=== PATIENT | female | born 1985 | race Caucasian/White ===

== ENCOUNTER 2016-09-24 20:08 | Emergency (ER) | payer OTHER ==
[~2016-09-24 20:08] MED LIST: /INSUNPH SC; CEPA5.4L2 MT; HUMA100I SC; HUMA100I3 SC; INSUDET SC; INSULADS SC; INSUN SC; LEVO750T33 PO; PERCOCET PO; REGL10TA6 PO; RIFA30CA PO; TUMS500C PO; TYLE325T5 PO; XANA1TAB2 PO; ZOLO100T PO; ZOLO50TA PO; [UNRECOGNIZED DRUG - OTHER] PO
[2016-09-24] MEDS ORDERED: CLINDAMYCIN 150 MG CAP As Ordered ONE (21:04)
[2016-09-24] MEDS ORDERED: IBUPROFEN 800 MG TAB As Ordered ONE (21:04)
--- NOTE | 2016-09-24 21:11 | EDDOCDS ---
Physician Documentation [facility] Name: Jenifer Tinoco Age: 31 yrs Sex: Female : 1985 Arrival Date: 09/24/2016 Time: 20:08 Bed 19 Private MD: NO PRIMARY PHYSICIAN, . Disposition: 09/24/16 20:44 Discharged to Home/Self Care. Impression: Dental caries. - Condition is Stable. - Discharge Instructions: Dental Pain. - Prescriptions for Clindamycin HCl 300 mg Oral Capsule - take 1 capsule by ORAL route every 6 hours; 40 capsule. Ibuprofen 800 mg Oral Tablet - take 1 tablet by ORAL route every 12 hours As needed take with food; 20 tablet. - Medication Reconciliation, Local Pharmacy Hours form. - Follow up: Private Physician; When: Call to arrange an appointment; Reason: Continuance of care. - Problem is an ongoing problem. - Symptoms have improved. - Notes: FOLLOW UP WITH THE DENTIST PREVIOUSLY ARRANGED. Historical: - Allergies: no known allergies; - Home Meds: 1. levamir insulin 20units twice a day 2. Humalog sliding scale Sub-Q three times a day - PMHx: Diabetes - IDDM: controlled; - PSHx: ; - Social history: Smoking status: Patient uses tobacco products, light tobacco smoker. No barriers to communication noted, The patient speaks fluent Namibian. - Family history: Not pertinent. - : The pt / caregiver states he / she is not on anticoagulants. Home medication list is obtained from the patient. - Exposure Risk Screening:: None identified. 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 Vital Signs: 20:09 BP 153 / 91; Pulse 101; Resp 16; Temp 97.4; Pulse Ox 97% ; Weight 74.84 kg / 164.99 elp lbs; Height 5 ft. 7 in. (170.18 cm); Pain 6/10; 20:09 Body Mass Index 25.84 (74.84 kg, 170.18 cm) elp MDM: 20:43 Ibuprofen 800 mg PO once ordered. mm11 20:43 Clindamycin 300 mg PO once ordered. mm11 Administered Medications: 21:08 Drug: Ibuprofen 800 mg Route: PO; ms2 21:08 Drug: Clindamycin 300 mg [clindamycin 150 mg capsule (2 caps)] Route: PO; ms2 Signatures: Jeremiah Sanchez RN RN ms2 Catina Gonzales RN RN mcp Wilfredo Tom, DO mm11 MTDD
--- NOTE | 2016-09-24 21:11 | EDDOCDS ---
Nurse's Notes [facility] Name: Jenifer Tinoco Age: 31 yrs Sex: Female : 1985 Arrival Date: 09/24/2016 Time: 20:08 Bed 19 Private MD: NO PRIMARY PHYSICIAN, . Diagnosis: Dental caries Presentation: 09/24 20:11 Presenting complaint: Patient states: Infection in tooth for last 4 days, jaw hurts. [facility] Adult Sepsis Screening: The patient does not have new or worsening altered mentation. Patient's respiratory rate is less than 22. Systolic blood pressure is greater than 100. Patient has a qSOFA score of 0- Negative Sepsis Screen. Suicide/Homicide risk assessment- the patient denies having any suicidal and/or homicidal ideations and does not present with any other emotional, behavioral or mental health complaints. 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 Transition of care: patient was not received from another setting of care. 20:11 Acuity: JOSE M Level 5 [facility] 20:11 Method Of Arrival: Walkin/Carried/Asstd [facility] Triage Assessment: 20:13 General: Appears uncomfortable, Behavior is cooperative. Pain: Location: mouth Pain mcp currently is 6 out of 10 on a pain scale. HIV screening NA for this visit Offered previously. Neurological: No deficits noted. Respiratory: Airway is patent Respiratory effort is even, unlabored. Derm: Skin is pink, warm & dry. 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 levamir insulin 20units twice a day 2. Humalog sliding scale Sub-Q three times a day - PMHx: Diabetes - IDDM: controlled; - PSHx: ; - Social history: Smoking status: Patient uses tobacco products, light tobacco smoker. No barriers to communication noted, The patient speaks fluent Turkmen. - Family history: Not pertinent. - : The pt / caregiver states he / she is not on anticoagulants. Home medication list is obtained from the patient. - Exposure Risk Screening:: None identified. Assessment: 21:08 General: Appears in no apparent distress, Behavior is cooperative. Neurological: Level ms2 of Consciousness is awake, alert, obeys commands. Respiratory: No deficits noted. Airway is patent Respiratory effort is even, unlabored, Respiratory pattern is regular, symmetrical. Derm: Skin is pink, warm & dry. Musculoskeletal: Range of motion intact in all extremities. Vital Signs: 20:09 BP 153 / 91; Pulse 101; Resp 16; Temp 97.4; Pulse Ox 97% ; Weight 74.84 kg; Height 5 elp ft. 7 in. (170.18 cm); Pain 6/10; 20:09 Body Mass Index 25.84 (74.84 kg, 170.18 cm) elp Vitals: 20:09 Log In Time: September 24, 2016 at 20:07. elp ED Course: 20:08 Patient visited by Shannon Flores PCA. elp 20:08 Patient moved to Waiting elp 20:09 NO PRIMARY PHYSICIAN, . is Private Physician. elp 20:09 Patient moved to Pre RCE elp 20:12 Triage Initiated mcp 20:14 Patient visited by Catina Gonzales RN. mcp 20:23 Jeremiah Sanchez RN is Primary Nurse. jb5 20:23 Patient moved to 19 jb5 20:31 Wilfredo Tom DO is Attending Physician. mm11 20:31 Patient visited by Wilfredo oTm DO. mm11 20:38 Patient visited by Wilfredo Tom DO. mm11 21:02 Patient visited by Luis Daniel Nevarez PCA. kb5 21:07 Patient visited by Jeremiah Sanchez,JESIKA. ms2 21:09 The patient / caregiver is instructed regarding the plan of care and ED course. ms2 21:09 No IV's were initiated during this patient's visit. No procedures done that require ms2 assistance. Administered Medications: 21:08 Drug: Ibuprofen 800 mg Route: PO; ms2 21:08 Drug: Clindamycin 300 mg [clindamycin 150 mg capsule (2 caps)] Route: PO; ms2 Order Results: There are currently no results for this order. Outcome: 20:44 Discharge ordered by Provider. mm11 21:09 Discharge Assessment: patient administered narcotics - no. The following High Risk ms2 Discharge criteria are identified: None. Discharged to home ambulatory, with parent. Condition: stable. Discharge instructions given to patient, Instructed on discharge instructions, follow up and referral plans. medication usage, Demonstrated understanding of instructions, medications, Pt was receptive of discharge instructions/ teaching. Prescriptions given X 2 faxed. No special radiology studies were completed. Property sent home with patient. 21:10 Patient left the ED. ms2 Signatures: Jeremiah Sanchez RN RN Catina Hart RN RN Katiuska Goodman, LINE INSTALLATION SUPERVISOR LINE INSTALLATION SUPERVISOR jb5 Geri, Luis Daniel, LINE INSTALLATION SUPERVISOR LINE INSTALLATION SUPERVISOR kb5 Wilfredo Tom, DO DO mm11 Shannon Flores, LINE INSTALLATION SUPERVISOR LINE INSTALLATION SUPERVISOR elp MTDD
--- NOTE | 2016-09-28 09:56 | EDDOCDS ---
Nurse's Notes [facility] Name: Jenifer Tinoco Age: 31 yrs Sex: Female : 1985 Arrival Date: 09/24/2016 Time: 20:08 Bed 19 Private MD: NO PRIMARY PHYSICIAN, . Diagnosis: Dental caries Presentation: 09/24 20:11 Presenting complaint: Patient states: Infection in tooth for last 4 days, jaw hurts. [facility] Adult Sepsis Screening: The patient does not have new or worsening altered mentation. Patient's respiratory rate is less than 22. Systolic blood pressure is greater than 100. Patient has a qSOFA score of 0- Negative Sepsis Screen. Suicide/Homicide risk assessment- the patient denies having any suicidal and/or homicidal ideations and does not present with any other emotional, behavioral or mental health complaints. 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 Transition of care: patient was not received from another setting of care. 20:11 Acuity: JOSE M Level 5 [facility] 20:11 Method Of Arrival: Walkin/Carried/Asstd [facility] Triage Assessment: 20:13 General: Appears uncomfortable, Behavior is cooperative. Pain: Location: mouth Pain mcp currently is 6 out of 10 on a pain scale. HIV screening NA for this visit Offered previously. Neurological: No deficits noted. Respiratory: Airway is patent Respiratory effort is even, unlabored. Derm: Skin is pink, warm & dry. 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 Historical: - Allergies: no known allergies; - Home Meds: 1. levamir insulin 20units twice a day 2. Humalog sliding scale Sub-Q three times a day - PMHx: Diabetes - IDDM: controlled; - PSHx: ; - Social history: Smoking status: Patient uses tobacco products, light tobacco smoker. No barriers to communication noted, The patient speaks fluent Albanian. - Family history: Not pertinent. - : The pt / caregiver states he / she is not on anticoagulants. Home medication list is obtained from the patient. - Exposure Risk Screening:: None identified. Assessment: 21:08 General: Appears in no apparent distress, Behavior is cooperative. Neurological: Level ms2 of Consciousness is awake, alert, obeys commands. Respiratory: No deficits noted. Airway is patent Respiratory effort is even, unlabored, Respiratory pattern is regular, symmetrical. Derm: Skin is pink, warm & dry. Musculoskeletal: Range of motion intact in all extremities. Vital Signs: 20:09 BP 153 / 91; Pulse 101; Resp 16; Temp 97.4; Pulse Ox 97% ; Weight 74.84 kg; Height 5 elp ft. 7 in. (170.18 cm); Pain 6/10; 20:09 Body Mass Index 25.84 (74.84 kg, 170.18 cm) elp Vitals: 20:09 Log In Time: September 24, 2016 at 20:07. elp ED Course: 20:08 Patient visited by Shannon Flores PCA. elp 20:08 Patient moved to Waiting elp 20:09 NO PRIMARY PHYSICIAN, . is Private Physician. elp 20:09 Patient moved to Pre RCE elp 20:12 Triage Initiated mcp 20:14 Patient visited by Catina Gonzales RN. mcp 20:23 Jeremiah Sanchez,JESIKA is Primary Nurse. jb5 20:23 Patient moved to 19 jb5 20:31 Wilfredo Tom DO is Attending Physician. mm11 20:31 Patient visited by Wilfredo Tom DO. mm11 20:38 Patient visited by Wilfredo Tom DO. mm11 21:02 Patient visited by Luis Daniel Nevarez PCA. kb5 21:07 Patient visited by Jeremiah Sanchez,JESIKA. ms2 21:09 The patient / caregiver is instructed regarding the plan of care and ED course. ms2 21:09 No IV's were initiated during this patient's visit. No procedures done that require ms2 assistance. 21:15 [facility] Payment Agreement was scanned into [email or web address] and attached to record. jp5 09/25 10:26 T-Sheet-- Draft Copy was scanned into [email or web address] and attached to record. gb Administered Medications: 09/24 21:08 Drug: Ibuprofen 800 mg Route: PO; ms2 21:08 Drug: Clindamycin 300 mg [clindamycin 150 mg capsule (2 caps)] Route: PO; ms2 Order Results: There are currently no results for this order. Outcome: 20:44 Discharge ordered by Provider. mm11 21:09 Discharge Assessment: patient administered narcotics - no. The following High Risk ms2 Discharge criteria are identified: None. Discharged to home ambulatory, with parent. Condition: stable. Discharge instructions given to patient, Instructed on discharge instructions, follow up and referral plans. medication usage, Demonstrated understanding of instructions, medications, Pt was receptive of discharge instructions/ teaching. Prescriptions given X 2 faxed. No special radiology studies were completed. Property sent home with patient. 21:10 Patient left the ED. ms2 Signatures: Jeremiah Sanchez RN RN ms2 Catina Gonzales RN RN mcp Mel Guzman, Reg Reg gb Katiuska Newberry, STUDIO OPERATOR STUDIO OPERATOR jb5 Luis Daniel Nevarez, STUDIO OPERATOR STUDIO OPERATOR kb5 Wilfredo Tom, DO mm11 Shannon Flores, STUDIO OPERATOR STUDIO OPERATOR elp Sapphire Lipscomb jp5 Chart Complete MTDD
--- NOTE | 2016-09-28 09:56 | EDDOCDS ---
Physician Documentation [facility] Name: Jenifer Tinoco Age: 31 yrs Sex: Female : 1985 Arrival Date: 09/24/2016 Time: 20:08 Bed 19 Private MD: NO PRIMARY PHYSICIAN, . Disposition: 09/24/16 20:44 Discharged to Home/Self Care. Impression: Dental caries. - Condition is Stable. - Discharge Instructions: Dental Pain. - Prescriptions for Clindamycin HCl 300 mg Oral Capsule - take 1 capsule by ORAL route every 6 hours; 40 capsule. Ibuprofen 800 mg Oral Tablet - take 1 tablet by ORAL route every 12 hours As needed take with food; 20 tablet. - Medication Reconciliation, Local Pharmacy Hours form. - Follow up: Private Physician; When: Call to arrange an appointment; Reason: Continuance of care. - Problem is an ongoing problem. - Symptoms have improved. - Notes: FOLLOW UP WITH THE DENTIST PREVIOUSLY ARRANGED. Historical: - Allergies: no known allergies; - Home Meds: 1. levamir insulin 20units twice a day 2. Humalog sliding scale Sub-Q three times a day - PMHx: Diabetes - IDDM: controlled; - PSHx: ; - Social history: Smoking status: Patient uses tobacco products, light tobacco smoker. No barriers to communication noted, The patient speaks fluent Anguillan. - Family history: Not pertinent. - : The pt / caregiver states he / she is not on anticoagulants. Home medication list is obtained from the patient. - Exposure Risk Screening:: None identified. 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 7 in. (170.18 cm); Pain 6/10; 20:09 Body Mass Index 25.84 (74.84 kg, 170.18 cm) elp MDM: 20:43 Ibuprofen 800 mg PO once ordered. mm11 20:43 Clindamycin 300 mg PO once ordered. mm11 21:15 [facility] Payment Agreement was scanned into [employer] and attached to record. jp5 21:15 Financial registration complete. jp5 09/25 10:26 T-Sheet-- Draft Copy was scanned into [employer] and attached to record. gb Administered Medications: 09/24 21:08 Drug: Ibuprofen 800 mg Route: PO; ms2 21:08 Drug: Clindamycin 300 mg [clindamycin 150 mg capsule (2 caps)] Route: PO; ms2 Signatures: Jeremiah Sanchez RN RN ms2 Catina Gonzales RN RN mcp Mel Guzman, Reg Reg gb Wilfredo Tom, DO mm11 Sapphire Lipscomb jp5 The chart was reviewed and I authenticate all verbal orders and agree with the evaluation and treatment provided.Attachments: 21:15 [facility] Payment Agreement jp5 09/25 10:26 T-Sheet-- Draft Copy gb Chart Complete MTDD
--- NOTE | 2016-09-28 09:56 | EDDOCDS ---
Physician Documentation [facility] Name: Jenifer Tinoco Age: 31 yrs Sex: Female : 1985 Arrival Date: 09/24/2016 Time: 20:08 Bed 19 Private MD: NO PRIMARY PHYSICIAN, . Disposition: 09/24/16 20:44 Discharged to Home/Self Care. Impression: Dental caries. - Condition is Stable. - Discharge Instructions: Dental Pain. - Prescriptions for Clindamycin HCl 300 mg Oral Capsule - take 1 capsule by ORAL route every 6 hours; 40 capsule. Ibuprofen 800 mg Oral Tablet - take 1 tablet by ORAL route every 12 hours As needed take with food; 20 tablet. - Medication Reconciliation, Local Pharmacy Hours form. - Follow up: Private Physician; When: Call to arrange an appointment; Reason: Continuance of care. - Problem is an ongoing problem. - Symptoms have improved. - Notes: FOLLOW UP WITH THE DENTIST PREVIOUSLY ARRANGED. Historical: - Allergies: no known allergies; - Home Meds: 1. levamir insulin 20units twice a day 2. Humalog sliding scale Sub-Q three times a day - PMHx: Diabetes - IDDM: controlled; - PSHx: ; - Social history: Smoking status: Patient uses tobacco products, light tobacco smoker. No barriers to communication noted, The patient speaks fluent Guatemalan. - Family history: Not pertinent. - : The pt / caregiver states he / she is not on anticoagulants. Home medication list is obtained from the patient. - Exposure Risk Screening:: None identified. 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 Vital Signs: 20:09 BP 153 / 91; Pulse 101; Resp 16; Temp 97.4; Pulse Ox 97% ; Weight 74.84 kg / 164.99 elp lbs; Height 5 ft. 7 in. (170.18 cm); Pain 6/10; 20:09 Body Mass Index 25.84 (74.84 kg, 170.18 cm) elp MDM: 20:43 Ibuprofen 800 mg PO once ordered. mm11 20:43 Clindamycin 300 mg PO once ordered. mm11 21:15 [facility] Payment Agreement was scanned into [employer] and attached to record. jp5 21:15 Financial registration complete. jp5 09/25 10:26 T-Sheet-- Draft Copy was scanned into [employer] and attached to record. gb Administered Medications: 09/24 21:08 Drug: Ibuprofen 800 mg Route: PO; ms2 21:08 Drug: Clindamycin 300 mg [clindamycin 150 mg capsule (2 caps)] Route: PO; ms2 Signatures: Jeremiah Sanchez RN RN ms2 Catina Gonzales RN RN mcp Mel Guzman, Reg Reg gb Wilfredo Tom, DO mm11 Sapphire Lipscomb jp5 The chart was reviewed and I authenticate all verbal orders and agree with the evaluation and treatment provided.Attachments: 21:15 [facility] Payment Agreement jp5 09/25 10:26 T-Sheet-- Draft Copy gb Chart Complete MTDD
== END 2016-09-24 21:10 | disposition home or self-care (01) ==
LOC: M ED 20:08
DX: K02.9 Dental caries, unspecified (principal); E10.9 Type 1 diabetes mellitus without complications; Z72.0 Tobacco use; Z79.4 Long term (current) use of insulin